=== PATIENT | male | born 1975 | race African-American/Black ===

== ENCOUNTER 2021-05-09 15:38 | Emergency (ER) | payer OTHER ==
[~2021-05-09] VITALS: Ht 182.9 cm; Wt 64.4 kg
[2021-05-09] MEDS ORDERED: [UNRECOGNIZED DRUG - CODE] PO (15:50)
[2021-05-09 19:03] VITALS: BP 132/66
== END 2021-05-09 19:08 | disposition home or self-care (01) ==
LOC: M ED 15:38
DX: R19.7 Diarrhea, unspecified (principal); F11.20 Opioid dependence, uncomplicated; B18.2 Chronic viral hepatitis C; F17.200 Nicotine dependence, unspecified, uncomplicated